=== PATIENT | female | born 1975 | race Caucasian/White ===

== ENCOUNTER 2018-02-10 06:01 | Inpatient (IN) | payer MEDICARE, OTHER ==
[2018-02-10] MEDS ORDERED: SEVOFLURANE 250 ML LIQUID IH ONE (09:00)
[2018-02-10] MEDS ORDERED: SUGAMMADEX 200 mg/2mL 200 MG/2 ML VIAL IV ONE (09:00)
[2018-02-10] MEDS ORDERED: ONDANSETRON HCL/PF 4 MG/ 2ML VIAL ONE ×2 (09:00→12:09)
[2018-02-10] MEDS ORDERED: DEXAMETHASONE SOD PHOS 4 MG/ML VIAL ONE (09:00)
[2018-02-10] MEDS ORDERED: ROCURONIUM BROMIDE 10 MG/ML 5ML VIAL ONE (09:00)
[2018-02-10] MEDS ORDERED: FAMOTIDINE/PF 20 MG/2 ML VIAL ONE (09:00)
[2018-02-10] MEDS ORDERED: ENOXAPARIN SODIUM 40 MG/0.4 ML DISP.SYRIN SQ ONE (09:00)
[2018-02-10] MEDS ORDERED: LEVALBUTEROL HCL 1.25 MG/3 ML NEB ONE (09:00)
[2018-02-10] MEDS ORDERED: LEVALBUTEROL HCL 1.25 MG/3 ML AMPUL.NEB NEB ONE (09:00)
[2018-02-10] MEDS ORDERED: PROPOFOL 200 MG/20 ML VIAL IV ONE (09:00)
[2018-02-10] MEDS ORDERED: BUPIVACAINE HCL 0.25%/EPI. PF 30 ML VIAL IJ ONE (09:00)
[2018-02-10] MEDS ORDERED: LIDOCAINE HCL/PF 2% 100 MG/5 ML VIAL IJ ONE (09:00)
[2018-02-10] MEDS ORDERED: NORMAL SALINE 1,000 ML IV.SOLN IV ONE ×2 (09:00)
[2018-02-10] MEDS ORDERED: Lidocaine 1% 20ml (SOUTH OMNI) 10 MG/ML ML ONE (09:00)
[2018-02-10] MEDS ORDERED: HYDROmorphone HCL/PF 2 MG/ML DISP.SYRIN ONE (10:00)
[2018-02-10] MEDS ORDERED: fentaNYL CITRATE/PF 100 MCG/ 2ML AMP ONE ×2 (10:00)
[2018-02-10] MEDS ORDERED: MORPHINE SULFATE 10 MG/ML VIAL ONE (10:00)
[2018-02-10] MEDS ORDERED: MIDAZOLAM HCL 2 MG/2 ML VIAL ONE (10:00)
--- NOTE | 2018-02-10 12:46 | History and Physical Report ---
History of Present Illnes - History of Present Illness Reason for Visit: Weight loss surgery History of Present Illness: Patient underwent sleeve gastrectomy this morning for weight loss. She has been doing well. Postoperatively complaining of nausea and abdominal pain. She will be admitted to acute care. - Past Medical History Cardiac: Hyperlipidemia Pulmonary: Asthma (Rescue inhaler only), Sleep Apnea (non compliant with CPAP) Psych: Depression, Other (PTSD) Musculoskeletal: Chronic low back pain (L leg nerve damage) ENT: Allergic rhinitis, Other (Intubated last year due to "allergic reaction to chemicals sprayed on [place] outside") Endocrine: Diabetes (ON lantus 60 U bid and humalog SSI), Hypothyroidism - Past Surgical History Past Surgical History: Appendectomy, Cholecystectomy, Hysterectomy (2005 - cervical and uterine cancer), Other (BAck x 7) - Past Family History Mother Family History: DM Father Family History: Cancer (Melanoma; STomach and bladder cancer) - Past Social History Smoke: 1 pack per day (On chantix so quitting) Occupation: Disabled Alcohol: None Drugs: None Lives: With Family (Boyfriend Carlos) - Health Maintenance Health Maintenance: Influenza Vaccine Influenza Vaccine: No, Patient Refused Pneumonia Vaccine: No Resuscitation Status: Full Review of Systems - Review of Systems Constitutional: negative: Fever, Weakness Eyes: negative: pain ENT: negative: Nose Discharge, Throat Pain Respiratory: negative: Cough, Dry, Shortness of Breath Cardiovascular: negative: Chest Pain Gastrointestinal: negative: Nausea, Vomiting, Abdominal Pain Genitourinary: negative: Dysuria, Frequency Musculoskeletal: Back Pain. negative: Neck Pain, Leg Pain Skin: negative: Rash Neurological: negative: Weakness - Medications/Allergies Allergies/Adverse Reactions: Allergies Allergy/AdvReac Type Severity Reaction Status Date / Time morphine Allergy Intermediate Rash Verified 02/10/18 13:26 Penicillins AdvReac Intermediate itching Verified 02/10/18 13:25 Exam - Exam General: Alert, Oriented to Person, Oriented to Place, Oriented to Time, Cooperative, No acute distress, Morbidly Obese HEENT: Atraumatic, PERRLA, EOMI, Mouth Mucous membr. moist/[place] Neck: Normal Range of Motion Lungs: Clear to auscultation, Normal air movement, Speaks full Sentences Cardiovascular: Regular rate Abdomen: Normal bowel sounds, Soft. No: No tenderness (INcisions look good. Mild tender to palpation) Integumentary: Normal Extremities: No edema Neurological: Normal gait, Normal speech, Strength Equal Bilat Psych/Mental Status: Mental status NL, Mood NL, Appropriate Affect Assessment/Plan - Assessment/Plan (1) Morbid obesity Status: Acute Current Visit: Yes Plan: S/P sleeve gastrectomy. Admit to acute care. Start with clear liquid diet - 1 oz every 15 min. Advance to full liquid in 24 hours if tolerating ok. Lovenox and SCD for DVT prevention. GI prophylaxis. IVF to prevent dehydration. IV pain control until tolerating po. (2) Diabetes Status: Chronic Current Visit: Yes Qualifiers: Diabetes mellitus type: type 2 Diabetes mellitus prison insulin use: with continuous [employer] use Diabetes mellitus complication status: without complication Qualified Code(s): E11.9 - Type 2 diabetes mellitus without complications; Z79.4 - detention (current) use of insulin Plan: Will do SSI at this time. Hold oral diabetic agents for now. Hold lantus for today to see how po intake goes. Watch closelu. (3) Asthma Status: Chronic Current Visit: No Qualifiers: Asthma severity: mild Asthma persistence: intermittent Asthma complication type: unspecified Qualified Code(s): J45.20 - Mild intermittent asthma, uncomplicated Plan: Xopenex HFN if needed. IS every hour. (4) Depression Status: Chronic Current Visit: No Qualifiers: Depression Type: major depressive disorder Major depression recurrence: recurrent Active/Remission status: remission status unspecified Qualified Code(s): F33.9 - Major depressive disorder, recurrent, unspecified Plan: Continue current meds. VTE Assessment - RISK FACTOR SCORE VTE RISK FACTOR SCORES: AGE 40-60 YEARS, MAJOR SURGERY/ANESTHESIA TIME > 1 HOUR - RISK VTE MODERATE RISK: SCORE OF 2 (RISK PROXIMAL DVT 2-4%) PROPHYAXIS NEEDED
[2018-02-10] MEDS ORDERED: fentaNYL CITRATE/PF 100 MCG/ 2ML AMP IVP PRN (12:57)
[2018-02-10] MEDS ORDERED: HYDROCODONE/ACETAMINOPHEN 15 ML SOLUTION PO PRN (12:59)
[2018-02-10] MEDS ORDERED: diphenhydrAMINE HCL 50 MG/ML VIAL IVP PRN (13:00)
[2018-02-10] MEDS ORDERED: PROMETHAZINE HCL 25 MG in 0.9 % SODIUM CHLORIDE 50 ML IV PRN (13:00)
[2018-02-10] MEDS ORDERED: LEVALBUTEROL HCL 1.25 MG/3 ML AMPUL.NEB NEB PRN (13:00)
[2018-02-10] MEDS ORDERED: PRAVASTATIN SODIUM 20 MG TABLET ONE (13:34)
[2018-02-10] MEDS ORDERED: LAMOTRIGINE 100 MG TABLET PO ONE (13:35)
[2018-02-10] MEDS ORDERED: CLINDAMYCIN PHOSPHATE 300 MG/2 ML VIAL ONE (13:35)
[2018-02-10] MEDS ORDERED: 0.9 % SODIUM CHLORIDE 50 ML IV ONE (13:36)
[2018-02-10] MEDS: KETOROLAC TROMETHAMINE 30 MG/1ML VIAL IVP PRN ×2 (13:53→20:49)
[2018-02-10] MEDS: 0.9 % SODIUM CHLORIDE 1,000 ML IV SCH ×2 (14:00→22:50)
[2018-02-10] MEDS: CLINDAMYCIN PHOSPHATE 600 MG in 0.9 % SODIUM CHLORIDE 50 ML IV SCH ×2 (14:02→21:25)
[2018-02-10] MEDS: ENOXAPARIN SODIUM 40 MG/0.4 ML DISP.SYRIN SQ SCH ×2 (14:05→15:29)
[2018-02-10] MEDS ORDERED: HYDROcodone /APAP 10/325 1 EACH TABLET PO ONE (15:03)
[2018-02-10] MEDS: INSULIN LISPRO 100 UNIT/ML 3ML VIAL SQ SCH ×3 (16:32→21:34)
[2018-02-10 17:46] VITALS: BMI 35.2
[2018-02-10] MEDS: FAMOTIDINE/PF 20 MG/2 ML VIAL IVP SCH (19:09)
[2018-02-10] MEDS: LEVOTHYROXINE SODIUM 100 MCG TABLET PO SCH (19:41)
[2018-02-10] MEDS: PANTOPRAZOLE SODIUM 40 MG TABLET PO SCH (19:42)
[2018-02-10] MEDS: FLUoxetine HCL 10 MG CAPSULE PO SCH (19:42)
[2018-02-10] MEDS: ONDANSETRON HCL/PF 4 MG/ 2ML VIAL IVP PRN (20:49)
[2018-02-10] MEDS ORDERED: Non-Formulary 1 EACH (Lamotrigine [Lamictal] 200 MG) PO SCH (21:00)
[2018-02-10] MEDS ORDERED: OLANZAPINE 10 MG PO SCH (21:00)
[2018-02-10] MEDS: PRAVASTATIN SODIUM 20 MG TABLET PO SCH (21:23)
[2018-02-10] MEDS: LAMOTRIGINE 100 MG TABLET PO SCH (21:25)
[2018-02-10] MEDS: rOPINIRole HCL 1 MG TABLET PO SCH (21:25)
[2018-02-10] MEDS: PRAZOSIN HCL 2 MG PO SCH (21:25)
[2018-02-11] MEDS: KETOROLAC TROMETHAMINE 30 MG/1ML VIAL IVP PRN (05:35)
[2018-02-11] MEDS: FAMOTIDINE/PF 20 MG/2 ML VIAL IVP SCH ×2 (05:49→16:38)
[2018-02-11] MEDS: LEVOTHYROXINE SODIUM 100 MCG TABLET PO SCH (05:49)
[2018-02-11] MEDS: PANTOPRAZOLE SODIUM 40 MG TABLET PO SCH (05:49)
[2018-02-11] MEDS: 0.9 % SODIUM CHLORIDE 1,000 ML IV SCH ×2 (05:50→19:05)
[2018-02-11 06:53] LABS: BASOPHILS % 0.5 (0.0-1.5); EOSINOPHILS % 1.1 % (0.0-6.8); MEAN CORPUSCULAR HEMOGLOBIN 33.7 pg (28.0-34.0); MONOCYTES % 5.7 % (0.0-11.0); NEUTROPHILS # 12.1 # k/uL (1.4-7.7)
[2018-02-11 07:16] LABS: eGFR (Non-African) > 60
[2018-02-11] MEDS: INSULIN LISPRO 100 UNIT/ML 3ML VIAL SQ SCH ×4 (07:31→21:05)
[2018-02-11] MEDS ORDERED: ENOXAPARIN SODIUM 40 MG/0.4 ML DISP.SYRIN SQ SCH ×2 (08:49→13:00)
[2018-02-11] MEDS ORDERED: FLUOXETINE HCL 40 MG PO SCH (09:00)
[2018-02-11] MEDS ORDERED: LEVOTHYROXINE SODIUM 300 MCG PO SCH (09:00)
[2018-02-11] MEDS ORDERED: OMEPRAZOLE 40 MG PO SCH (09:00)
[2018-02-11] MEDS ORDERED: BISACODYL 5 MG TABLET.DR PO PRN (09:03)
--- NOTE | 2018-02-11 09:08 | Inpatient Progress Note ---
Subjective - Required Recertification Statement I anticipate X number of days because-include discharge plan: 2 - Review of Systems Subjective: Patient slept poorly last night due to pain. Requesting dilaudid this morning as "morphine does nothing" for her pain. Drinking well. UOP good. Worried about no BM. General: Denies: Chills Objective - Exam Vitals and I&O: Vital Signs Temp 98.2 F 02/11/18 06:00 Pulse 68 02/11/18 06:00 Resp 18 02/11/18 06:00 BP 137/77 02/11/18 06:00 Pulse Ox 94 02/11/18 06:00 Intake & Output 02/10/18 02/10/18 02/11/18 11:59 23:59 11:59 Intake Total 2281 1200 Output Total 800 Balance 1481 1200 Weight 102.512 kg Intake: IV 2031 1200 Right Wrist 2031 1200 Oral 250 Output: Urine 800 Other: Voiding Method Toilet Toilet # Voids 1 General: Alert, Oriented to Person, Oriented to Place, Oriented to Time, Cooperative, No acute distress Lungs: Clear to auscultation, Normal air movement, Speaks full Sentences Cardiovascular: Regular rate Abdomen: Soft, Decreased Bowel Sounds. No: No tenderness (Tender more on LUQ.) - Results Results: Laboratory Results WBC 15.80 K/ul (4.00-12.00) H 02/11/18 06:00 RBC 3.69 M/ul (3.90-5.20) L 02/11/18 06:00 Hgb 12.5 g/dL (12.0-16.0) 02/11/18 06:00 Hct 36.9 % (34.5-46.5) 02/11/18 06:00 MCV 100.0 fl (80.0-100.0) 02/11/18 06:00 MCH 33.7 pg (28.0-34.0) 02/11/18 06:00 MCHC 33.7 g/dL (30.0-36.0) 02/11/18 06:00 RDW 11.2 % (11.3-14.3) L 02/11/18 06:00 Plt Count 320 K/mm3 (130-400) 02/11/18 06:00 Neut % (Auto) 76.2 % (39.0-79.0) 02/11/18 06:00 Lymph % (Auto) 16.5 % (16.0-50.0) 02/11/18 06:00 Boundary % (Auto) 5.7 % (0.0-11.0) 02/11/18 06:00 Eos % (Auto) 1.1 % (0.0-6.8) 02/11/18 06:00 Baso % (Auto) 0.5 (0.0-1.5) 02/11/18 06:00 Neut # (Auto) 12.1 # k/uL (1.4-7.7) H 02/11/18 06:00 Lymph # (Auto) 2.6 # k/uL (0.6-4.0) 02/11/18 06:00 Boundary # (Auto) 0.9 # k/uL (0.0-0.9) 02/11/18 06:00 Eos # (Auto) 0.2 # k/uL (0.0-0.6) 02/11/18 06:00 Baso # (Auto) 0.1 # k/uL (0.0-0.5) 02/11/18 06:00 Sodium 138 mmol/L (136-145) 02/11/18 06:00 Potassium 4.0 mmol/L (3.5-5.1) 02/11/18 06:00 Chloride 109 mmol/L (98-107) H 02/11/18 06:00 Carbon Dioxide 19 mmol/L (22-30) L 02/11/18 06:00 BUN 10 mg/dL (7-17) 02/11/18 06:00 Creatinine 0.70 mg/dL (0.52-1.04) 02/11/18 06:00 Estimated Creat Clear 201 02/11/18 06:00 Est GFR ( Amer) > 60 (60-) 02/11/18 06:00 Est GFR (Non-Af Amer) > 60 (60-) 02/11/18 06:00 Glucose 160 mg/dL (74-106) H 02/11/18 06:00 Calcium 8.3 mg/dL (8.4-10.2) L 02/11/18 06:00 Total Bilirubin 0.5 mg/dL (0.2-1.3) 02/11/18 06:00 AST 47 U/L (15-46) H 02/11/18 06:00 ALT 76 U/L (13-69) H 02/11/18 06:00 Alkaline Phosphatase 59 U/L (38-126) 02/11/18 06:00 Total Protein 6.5 g/dL (6.3-8.2) 02/11/18 06:00 Albumin 3.4 g/dL (3.5-5.0) L 02/11/18 06:00 Assessment/Plan - Assessment/Plan (1) Morbid obesity Status: Acute Current Visit: Yes Plan: Will get KUB to check for obstruction. Plan to order dilaudid and stop morphine. Will give dulcolax if needed. WBC mildly elevated. Suspect demargination from pain. Afebrile and pulse normal. Watch. (2) Diabetes Status: Chronic Current Visit: Yes Qualifiers: Diabetes mellitus type: type 2 Diabetes mellitus [facility] insulin use: with [facility] use Diabetes mellitus complication status: without complication Qualified Code(s): E11.9 - Type 2 diabetes mellitus without complications; Z79.4 - custodial (current) use of insulin Assessment: BS 130-190 on SSI. Watch. (3) Asthma Status: Chronic Current Visit: No Qualifiers: Asthma severity: mild Asthma persistence: intermittent Asthma complication type: unspecified Qualified Code(s): J45.20 - Mild intermittent asthma, uncomplicated (4) Depression Status: Chronic Current Visit: No Qualifiers: Depression Type: major depressive disorder Major depression recurrence: recurrent Active/Remission status: remission status unspecified Qualified Code(s): F33.9 - Major depressive disorder, recurrent, unspecified
[2018-02-11] MEDS: rOPINIRole HCL 1 MG TABLET PO SCH ×2 (09:17→21:12)
[2018-02-11] MEDS: FLUoxetine HCL 10 MG CAPSULE PO SCH (09:18)
[2018-02-11] MEDS: LAMOTRIGINE 100 MG TABLET PO SCH (09:18)
[2018-02-11] MEDS: HYDROmorphone HCL/PF 2 MG/ML DISP.SYRIN IVP SCH ×8 (09:30→21:50)
[2018-02-11] MEDS ORDERED: KETOROLAC TROMETHAMINE 30 MG/1ML VIAL IVP PRN (12:32)
[2018-02-11] MEDS: ENOXAPARIN SODIUM 40 MG/0.4 ML DISP.SYRIN SQ SCH (12:48)
--- NOTE | 2018-02-11 18:11 | Diagnostic Imaging Report ---
D[facility] [id number] [facility] [address] [place], [place]. [address] Report Submission Date: Feb 11, 2018 12:04:50 PM FORENSIC SPECIALIST Patient Study Name: MARCELO GARCIAS Date: Feb 11, 2018 11:32:29 AM FORENSIC SPECIALIST Modality Type: DX Gender: F Description: ABDOMEN : 77 Institution: [facility] Physician: DALE MARK KUB History: Gastric sleeve placement 1 day ago with poor bowel sounds Two supine views of the abdomen demonstrate the presence of a relatively linear radiodensity projecting over the stomach, presumably the patient's gastric sleeve. A line or lead overlies the left upper abdomen. There has been lumbar surgery and cholecystectomy. There is air within a nondistended colon. There is air within a few loops of distal small bowel. No abnormally dilated loops of large or small bowel are noted. Impression: Presence of a presumed gastric sleeve. Nonobstructive bowel gas pattern. There is air generally within the colon and within a few distal small bowel loops. Electronically signed on Feb 11, 2018 12:04:50 PM FORENSIC SPECIALIST by: Ayesha HARVEY
[2018-02-11] MEDS: PRAVASTATIN SODIUM 20 MG TABLET PO SCH (21:43)
[2018-02-11] MEDS: PRAZOSIN HCL 2 MG PO SCH (21:48)
[2018-02-12] MEDS: HYDROmorphone HCL/PF 2 MG/ML DISP.SYRIN IVP SCH ×7 (00:21→12:05)
[2018-02-12] MEDS: 0.9 % SODIUM CHLORIDE 1,000 ML IV SCH ×2 (01:10→07:31)
[2018-02-12] MEDS: ONDANSETRON HCL/PF 4 MG/ 2ML VIAL IVP PRN (06:36)
[2018-02-12] MEDS: LEVOTHYROXINE SODIUM 100 MCG TABLET PO SCH (06:40)
[2018-02-12] MEDS: PANTOPRAZOLE SODIUM 40 MG TABLET PO SCH (06:43)
[2018-02-12] MEDS: FAMOTIDINE/PF 20 MG/2 ML VIAL IVP SCH (06:45)
[2018-02-12 07:26] LABS: BASOPHILS % 0.4 (0.0-1.5); EOSINOPHILS % 1.1 % (0.0-6.8); MEAN CORPUSCULAR HEMOGLOBIN 33.2 pg (28.0-34.0); MONOCYTES % 4.2 % (0.0-11.0); NEUTROPHILS # 6.2 # k/uL (1.4-7.7)
[2018-02-12 07:29] LABS: eGFR (Non-African) > 60
[2018-02-12] MEDS: INSULIN LISPRO 100 UNIT/ML 3ML VIAL SQ SCH ×2 (07:54→11:36)
[2018-02-12] MEDS ORDERED: CYCLOBENZAPRINE HCL 5 MG TABLET PO PRN (09:07)
[2018-02-12] MEDS: rOPINIRole HCL 1 MG TABLET PO SCH (09:13)
--- NOTE | 2018-02-12 09:17 | Discharge Summary ---
Discharge Summary - Discharge Sumary History of Present Illness: Patient underwent sleeve gastrectomy this morning for weight loss. She has been doing well. Postoperatively complaining of nausea and abdominal pain. She will be admitted to acute care. Condition at Discharge: Stable Home Medications: Ambulatory Orders Medication Instructions Recorded Fluoxetine HCl 40 mg PO DAILY 02/10/18 Lamotrigine [Lamictal] 200 mg PO BID 02/10/18 Levothyroxine Sodium [Synthroid] 300 mcg PO DAILY 02/10/18 Olanzapine 10 mg PO HS 02/10/18 Omeprazole 40 mg PO DAILY 02/10/18 Pravastatin Sodium 20 mg PO HS 02/10/18 Prazosin HCl 2 mg PO HS 02/10/18 Triazolam 0.5 mg PO HS PRN 02/10/18 Consultations this Visit: None Procedures this Visit: Other (Sleeve Gastrectomy) Allergies/Adverse Reactions: Allergies Allergy/AdvReac Type Severity Reaction Status Date / Time morphine Allergy Intermediate Rash Verified 02/10/18 13:26 Penicillins AdvReac Intermediate itching Verified 02/10/18 13:25 Hospital Course: Discharge Dx. Morbid obestiy - s/p gastric sleeve. DM. Depression. disp - home
[2018-02-12] MEDS: ENOXAPARIN SODIUM 40 MG/0.4 ML DISP.SYRIN SQ SCH (12:13)
[2018-02-12 14:26] VITALS: BP 105/66
== END 2018-02-12 14:25 | disposition home or self-care (01) | DRG 621 ==
LOC: SOUTH 06:01 → UNDOADMIN 12:08 → SOUTH 12:08 → UNDODISIN 02-12 14:25
PROVIDERS: ADMIT Family Medicine; ATTEND Family Medicine
DX: E66.01 Morbid (severe) obesity due to excess calories (principal); K44.9 Diaphragmatic hernia without obstruction or gangrene; I10 Essential (primary) hypertension; E11.8 Type 2 diabetes mellitus with unspecified complications; G47.30 Sleep apnea, unspecified; E78.5 Hyperlipidemia, unspecified; Z68.36 Body mass index [BMI] 36.0-36.9, adult; Z79.4 Long term (current) use of insulin; G89.18 Other acute postprocedural pain
CPT/HCPCS: 43235; 74018; 80048; 80053; 85025; 99221; 99222; 99238; J1100; J1170; J1650; J1815; J1885; J2001; J2250; J2270; J2405; J2550; J2704; J3010; J3490; J7614; S0028; 43775; A9270-GY; J7030